=== PATIENT | female | born 1950 | race Asian ===

== ENCOUNTER 2024-10-29 18:21 | Emergency (ER) | payer MEDICARE, OTHER ==
[~2024-10-29] VITALS: Ht 149.9 cm; Wt 45.4 kg
[2024-10-29] MEDS ORDERED: Ketorolac Tromethamine 15mg Vial IM ONE (21:25)
== END 2024-10-29 21:53 | disposition home or self-care (01) ==
LOC: ER 18:21
DX: M71.21 Synovial cyst of popliteal space [Baker], right knee (principal); Z88.0 Allergy status to penicillin
CPT/HCPCS: 93971; 96372; 99283-25; J1885